=== PATIENT | male | born 1950 | race Native Hawaiian/Other Pacific Islander ===

== ENCOUNTER 2018-09-06 10:46 | Outpatient (CLI) | payer OTHER | END 2018-09-06 19:49 | disposition home or self-care (01) | LOC: CT 10:46 | DX: R91.1 Solitary pulmonary nodule (principal) ==

== ENCOUNTER 2019-11-10 12:50 | Outpatient (CLI) | payer OTHER | END 2019-11-10 19:27 | disposition home or self-care (01) | LOC: CT 12:50 | DX: R91.1 Solitary pulmonary nodule (principal) ==

== ENCOUNTER 2021-04-22 06:56 | Outpatient (CLI) | payer OTHER ==
[2021-05-02 08:03] LABS: POTASSIUM 4.3 mmol/L (3.6-5.2)
[2021-05-02 08:04] LABS: PLATELET COUNT 266 K/uL (142-355)
== END 2021-04-22 23:59 | disposition home or self-care (01) ==
LOC: LABW 06:56
PROVIDERS: ATTEND Internal Medicine
DX: I10 Essential (primary) hypertension (principal); E03.8 Other specified hypothyroidism; R73.03 Prediabetes
CPT/HCPCS: 36415; 80053; 80061; 81000; 83036; 84439; 84443; 85027

== ENCOUNTER 2021-07-01 13:53 | Outpatient (CLI) | payer OTHER | END 2021-07-01 20:16 | disposition home or self-care (01) | LOC: LAB 13:53 | PROVIDERS: ATTEND Internal Medicine | DX: R53.83 Other fatigue (principal); Z11.52 Encounter for screening for COVID-19 | CPT/HCPCS: 87635; G2023; U0003 ==

== ENCOUNTER 2021-09-13 15:29 | Outpatient (CLI) | payer OTHER | END 2021-09-13 20:27 | disposition home or self-care (01) | LOC: RESP 15:29 | PROVIDERS: ATTEND Specialist | DX: R94.31 Abnormal electrocardiogram [ECG] [EKG] (principal) ==

== ENCOUNTER 2021-09-20 07:35 | Outpatient (CLI) | payer OTHER ==
[~2021-09-20] VITALS: Ht 175.3 cm; Wt 112.0 kg
== END 2021-09-20 18:53 | disposition home or self-care (01) ==
LOC: NM 07:35
PROVIDERS: ATTEND Specialist
DX: R94.31 Abnormal electrocardiogram [ECG] [EKG] (principal); R06.02 Shortness of breath; R06.09 Other forms of dyspnea; R53.83 Other fatigue; R94.2 Abnormal results of pulmonary function studies
CPT/HCPCS: A9500; J2785

== ENCOUNTER 2021-12-05 11:35 | Outpatient (CLI) | payer OTHER ==
[2021-12-05 12:07] LABS: PLATELET COUNT 309 K/uL (142-355)
[2021-12-05 12:33] LABS: POTASSIUM 4.7 mmol/L (3.6-5.2)
== END 2021-12-05 19:00 | disposition home or self-care (01) ==
LOC: LABW 11:35
PROVIDERS: ATTEND Internal Medicine
DX: K59.01 Slow transit constipation (principal)
CPT/HCPCS: 36415; 80053; 84439; 84443; 85027

== ENCOUNTER 2022-02-17 10:24 | Outpatient (CLI) | payer OTHER | END 2022-02-17 20:30 | disposition home or self-care (01) | LOC: RAD 10:24 | PROVIDERS: ATTEND Internal Medicine | DX: J40 Bronchitis, not specified as acute or chronic (principal) ==

== ENCOUNTER 2022-04-07 15:45 | Outpatient (CLI) | payer OTHER | END 2022-04-07 20:22 | disposition home or self-care (01) | LOC: CT 15:45 | PROVIDERS: ATTEND Nurse Practitioner Family | DX: R91.8 Other nonspecific abnormal finding of lung field (principal) ==

== ENCOUNTER 2023-02-23 12:05 | Outpatient (CLI) | payer OTHER | END 2023-02-23 19:41 | disposition home or self-care (01) | LOC: RAD 12:05 | PROVIDERS: ATTEND Nurse Practitioner Family | DX: R06.09 Other forms of dyspnea (principal) ==